=== PATIENT | female | born 1980 | race Two or more races ===

== ENCOUNTER → 2020-04-03 | Outpatient (CLI) | payer OTHER ==
[~2020-04-03] MED LIST: LEVSIN/SL0.125 MG SL; MEGESTROL ACETA20 MG; PROTONIX40 MG PO
== END | disposition home or self-care (01) ==
LOC: OFIC 805 13:30
PROVIDERS: ATTEND Otolaryngology Otology & Neurotology
DX: M26.622 Arthralgia of left temporomandibular joint (principal); H92.02 Otalgia, left ear; H93.8X2 Other specified disorders of left ear